=== PATIENT | male | born 1960 | race Caucasian/White ===

== ENCOUNTER 2024-03-23 09:10 | Outpatient (CLI) | payer OTHER ==
[~2024-03-23 09:10] MED LIST: AMA1T PO; FENO145T26 PO; INSU100V12 SQ; LOP25T PO; NORCO10T PO; OMEG1CAP61 PO; SITA1TBM4 PO; TELM80TA5 PO
== END 2024-03-23 23:59 | disposition home or self-care (01) ==
LOC: RAD 09:10
PROVIDERS: ATTEND Chiropractor
DX: M43.26 Fusion of spine, lumbar region (principal); M13.80 Other specified arthritis, unspecified site; I70.0 Atherosclerosis of aorta; M54.50 Low back pain, unspecified; Z96.642 Presence of left artificial hip joint
CPT/HCPCS: 72070; 72100; 72220